=== PATIENT | male | born 1975 | race Caucasian/White ===

== ENCOUNTER 2022-12-05 10:44 | Outpatient (CLI) | payer BC, SELFPAY ==
--- NOTE | 2022-12-05 09:59 | W.ANESCHARGE ---
Anesthesia Charges Start Date/Time Anesthesia Start Date: 12/05/22 Anesthesia Start Time: 11:44 Stop Date/Time Anesthesia Stop Date: 12/05/22 Anesthesia Stop Time: 12:16
--- NOTE | 2022-12-05 12:22 | W.ANESCHARGE ---
Anesthesia Charges Start Date/Time Anesthesia Start Date: 12/05/22 Anesthesia Start Time: 11:44 Stop Date/Time Anesthesia Stop Date: 12/05/22 Anesthesia Stop Time: 12:16
== END 2022-12-05 10:45 | disposition home or self-care (01) ==
LOC: OP CLINIC 10:45
PROVIDERS: PCP Family Medicine; Visit Provider Surgery
DX: Z12.11 Encounter for screening for malignant neoplasm of colon (principal); Z83.71 Family history of colonic polyps
CPT/HCPCS: 45378; 812; J2405; J2704

== ENCOUNTER 2024-01-01 08:45 | Outpatient (CLI) | payer BC, SELFPAY | END 2024-01-01 08:46 | disposition home or self-care (01) | LOC: NFLDREF 01-04 06:05 | PROVIDERS: PCP Family Medicine; Referring Provider Family Medicine; Visit Provider Family Medicine | DX: E11.9 Type 2 diabetes mellitus without complications (principal); Z12.5 Encounter for screening for malignant neoplasm of prostate; Z13.220 Encounter for screening for lipoid disorders | CPT/HCPCS: 80053; 80061; 82043; 82570; G0103 ==

== ENCOUNTER 2024-02-06 14:38 | Outpatient (CLI) | payer BC, SELFPAY | END 2024-02-06 14:39 | disposition home or self-care (01) | LOC: RAD 14:38 | PROVIDERS: PCP Family Medicine; Visit Provider Family Medicine | DX: I31.9 Disease of pericardium, unspecified (principal) | CPT/HCPCS: 93306 ==

== ENCOUNTER 2024-07-11 13:02 | Outpatient (CLI) | payer BC, SELFPAY | END 2024-07-11 13:03 | disposition home or self-care (01) | LOC: NFLDREF 07-20 16:37 | PROVIDERS: PCP Family Medicine; Referring Provider Family Medicine; Visit Provider Family Medicine | DX: E11.9 Type 2 diabetes mellitus without complications (principal) | CPT/HCPCS: 80053; 80061; 82043; 82570 ==

== ENCOUNTER 2024-08-08 13:52 | Outpatient (CLI) | payer BC, SELFPAY ==
--- NOTE | 2024-08-08 14:00 | CRLHL7_ITS ---
For Patients: As a result of the Century Cures Act, medical imaging exams and procedure reports are released immediately into your electronic medical record. You may view this report before your referring provider. If you have questions, please contact your health care provider. Indication: Right axillary lump for 1 month. Technique: Sonographic evaluation of the right axilla area of concern. Grayscale and color Doppler imaging utilized. Comparison: None Findings: Within the area of concern, appearing limited to the subcutaneous fat, there is a slightly hyperechoic, somewhat ill-defined and slightly vascular region measuring 14 x 13 x 6 millimeters. No significant edema. No fluid collection. No tract to the skin. Impression: Findings are most suspicious for a slightly irregular but likely benign lipoma in the area of concern measuring 14 millimeters. If the lesion enlarges or changes in clinical characteristics, a repeat examination or tissue sampling could be considered. Dictated by Kenny Nation MD @ 08/09/2024 8:48:26 PM (Electronically Signed)
== END 2024-08-08 13:53 | disposition home or self-care (01) ==
PROVIDERS: PCP Family Medicine; Visit Provider Physician Assistant Medical
DX: L03.111 Cellulitis of right axilla (principal)
CPT/HCPCS: 76882

== ENCOUNTER 2025-01-08 08:10 | Outpatient (CLI) | payer BC, SELFPAY | END 2025-01-08 08:11 | disposition home or self-care (01) | LOC: NFLDREF 01-12 15:33 | PROVIDERS: PCP Family Medicine; Referring Provider Family Medicine; Visit Provider Family Medicine | DX: E11.9 Type 2 diabetes mellitus without complications (principal); I10 Essential (primary) hypertension; Z12.5 Encounter for screening for malignant neoplasm of prostate | CPT/HCPCS: 80048; G0103 ==